=== PATIENT | female | born 1940 ===

== ENCOUNTER 2024-08-27 06:31 | Inpatient (IN) | payer OTHER ==
[~2024-08-27] VITALS: Ht 152.4 cm; Wt 68.0 kg
[~2024-08-27 06:31] MED LIST: COZAAR25 MG; DICLOFENAC POTA50 MG PO; NABUMETONE500 MG PO; NEURONTIN300 MG PO; NORFLEX100MG PO; ULTRACET PO
[2024-08-27] MEDS ORDERED: CLONAZEPAM0.5 MG PO (06:52)
[2024-08-27] MEDS ORDERED: COZAAR100 MG PO (06:52)
[2024-08-27] MEDS ORDERED: RISPERDAL0.5 MG PO (06:52)
--- NOTE | 2024-08-27 06:53 | NUR ---
SE RECIBE PACIENTE EN AMBULANCIA ALERTA Y CON RESPUESTA A ESTIMULOS. FAMILIAR REFIERE QUE DESDE HACE DOS GRANT PRESENTA DIFICULTAD RESPIRATORIA. SE OBSERVA PACIENTE CON NON REBREATHER 100% Y USO DE MUSCULOS ACCESORIOS. SE MONITOREAN VS, SE REALIZA EKG. SE UBICA EN AREA DE CRITICO Y SE CONECTA A MONITOR CARDIACO.
[2024-08-27] MEDS ORDERED: 0.9 % SODIUM CHLORIDE 1,000 ML IV STA (07:02)
[2024-08-27] MEDS ORDERED: FUROsemide 20 MG/2 ML VIAL ONE (07:06)
[2024-08-27] MEDS ORDERED: NITROGLYCERIN IN 5 % DEXTROSE 50 MG/250 ML KIT IV STA (07:06)
[2024-08-27] MEDS ORDERED: NITROGLYCERIN IN 5 % DEXTROSE 50 MG/250 ML BOTTLE IV ONE (07:07)
[2024-08-27] MEDS ORDERED: FUROsemide 20 MG/2 ML VIAL IV STA (07:07)
[2024-08-27] MEDS ORDERED: FLUMAZENIL 0.5 MG/5 ML ML IV STA (07:15)
[2024-08-27] MEDS ORDERED: FLUMAZENIL 0.5 MG/5 ML ML IV ONE (07:19)
--- NOTE | 2024-08-27 07:20 | NUR ---
SE CANALIZA PACIENTE EN BRAZO PAULETTE # 18 Y MANO IZQUIERDA # 20 SE COLOCA TRIDIL 50MG/250ML @ 2 ML/HR Y LASIX 20 MG POR ORDEN VERBAL DE DR. STAPLETON. SE GERALD MUESTRAS DE LAB[facility]ATORIOS Y SE ENVIAN. SE INSERTA BARRAZA # 16 BAJO MEDIDAS ESTERIL Y SE OBSERVA 300 ML DE EGRESO URINARIO NO HEMATURIA. PENDIENTE PLACA Y ABGS NOTIFICADOS A MS. BAEZ
[2024-08-27 07:48] LABS: HEMATOCRIT 27.1 % (36.0-45.00); MEAN CELL VOLUME 95.6 fL (80.00-100.00); RED BLOOD COUNT 2.84 M/uL (4.00-6.00); RED CELL DISTRIBUTION WIDTH 13.1 % (11.5-14.5)
[2024-08-27 07:50] LABS: MEAN CORPUSCULAR HEMOGLOBIN 33.4 pg (27.00-32.0); PLATELET COUNT 116 K/uL (150-450)
[2024-08-27 07:51] LABS: HEMOGLOBIN 9.5 g/dL (12.0-15.00)
[2024-08-27 08:05] LABS: PH,URINE 6.5 (5.0-8.0); URINE APPEARANCE Clear; URINE BILIRRUBIN Negative (NEGATIVE); URINE BLOOD Negative; URINE COLOR Yellow; URINE GLUCOSE Negative (NEGATIVE); URINE KETONE Trace (NEGATIVE); URINE LEUKOCYTE Small; URINE NITRATE Positive
[2024-08-27 08:06] LABS: URINE EPITHELIAL CELLS 17.7 uL (0.0-38.8); URINE WBC 232.8 uL (0.0-23.2)
[2024-08-27 08:09] LABS: PARTIAL THROMBOPLASTIN TIME 26.2 SECONDS (22.0-34.0)
[2024-08-27 08:14] LABS: ALBUMIN 3.1 gm/dL (3.4-5.0); BILIRUBIN TOTAL 1.04 mg/dL (0.3-1.2); CALCIUM 8.1 mg/dL (8.5-10.1); CREATININE SERUM 0.94 mg/dL (0.55-1.02); GFR 57.01; GLOBULINA 3.3 G/DL (2.4-3.5); POTASSIUM 3.28 mEq/L (3.5-5.1); TOTAL PROTEIN 6.4 gm/dL (6.4-8.2)
[2024-08-27 08:16] LABS: URINE CAST 0.58 uL (0.0-1.40)
[2024-08-27 08:19] LABS: URINE PROTEIN 300 (NEGATIVE)
[2024-08-27 08:21] LABS: D DIMER 3.66 MG/L
--- NOTE | 2024-08-27 08:45 | NUR ---
HIJA DE PACIENTE FIRMA DOCUMENTOS DE [id number]
[2024-08-27 08:52] LABS: INR 1.15; PROTHROMBIN TIME 12.4 SECONDS (9.0-11.5)
--- NOTE | 2024-08-27 15:00 | NUR ---
SE RECIBE PTE ALERTA Y ACTIVA EN UNIDAD DE CRITICO. PTE UBICADA EN DESCANZO EN CAMA BAJA CON BARANDAS ELEVADAS, CONECTADA A MONITOR CARDIACO Y OXIMETRIA DE PULSO CONTINUA. PTE RECIBIENDO ASISTENCIA RESPIRATORIA POR NON REBREATHER AL 100%. PTE CON CANALIZACION #20 Y #18 EN BRAZO DERECHO PATENTE CARLOS DE EDEMA Y ERITEMA RECIBIENDO TRIDIL A 3LT/HR. AL MOMENTO QUE SE RECIBE PTE LA MISMA NO REFIERE DOLOR. SE GERALD SV Y SE DOCUMENTAN
[2024-08-27] MEDS ORDERED: IPRATROPIUM BROMIDE 0.5 MG/2.5 ML AMPUL.NEB IH SCH (17:34)
[2024-08-27] MEDS ORDERED: FUROsemide 20 MG/2 ML VIAL IV SCH (17:40)
[2024-08-27] MEDS ORDERED: levoFLOXacin IN DEXTROSE 5 % 150 ML IV SCH (17:41)
[2024-08-27] MEDS ORDERED: ENOXAPARIN SODIUM 40 MG/0.4 ML SYRINGE SUBCUTANEO SCH (17:44)
[2024-08-27] MEDS ORDERED: ACETAMINOPHEN 500 MG GEL..CAP PO PRN (17:45)
[2024-08-27] MEDS ORDERED: NITROGLYCERIN IN 5 % DEXTROSE 250 ML IV SCH ×2 (18:00→19:15)
[2024-08-27] MEDS ORDERED: DEXTROSE 50 % IN WATER 0.5 G/ML DISP.SYRIN IV PRN (18:00)
[2024-08-27] MEDS ORDERED: INSULIN LISPRO 1,000 UNIT/10 ML UNITS SUBCUTANEO PRN (18:00)
[2024-08-27] MEDS ORDERED: POTASSIUM CHLORIDE 20MEQ/100ML H2O PB IV ONE (18:00)
[2024-08-27] MEDS ORDERED: FUROsemide 40 MG/4 ML VIAL ONE (19:03)
[2024-08-27] MEDS ORDERED: levoFLOXacin IN DEXTROSE 5 % 5 MG/ML PIGGYBAG IV ONE (19:03)
[2024-08-27] MEDS ORDERED: ENOXAPARIN SODIUM 40 MG/0.4 ML SYRINGE SUBCUTANEO ONE (19:03)
[2024-08-27 19:21] LABS: MAGNESIUM 1.5 mg/dL (1.8-2.4)
[2024-08-27 19:22] LABS: C-REACTIVE PROTEIN 3.87 MG/DL (0.00-0.29)
[2024-08-27 22:30] VITALS: BP 182/45; O2SAT 100
[2024-08-27] MEDS ORDERED: AMIODARONE IN DEXTROSE,ISO-OSM 360 MG/200 ML IV.SOLN IV ONE (23:29)
[2024-08-27] MEDS ORDERED: AMIODARONE HCL 50 MG/ML AMPUL IV ONE ×2 (23:29→23:45)
[2024-08-27 23:33] VITALS: BP 182/45; O2SAT 98
[2024-08-27] MEDS ORDERED: AMIODARONE IN DEXTROSE,ISO-OSM 360 MG/200 ML IV.SOLN IV SCH (23:45)
[2024-08-28] VITALS (24 sets, daily range): BP systolic 124–194; BP diastolic 47–98; O2SAT 17–100
[2024-08-28 07:32] LABS: PHOSPHOROUS 3.4 mg/dL (2.5-4.9)
[2024-08-28 07:54] LABS: MAGNESIUM 1.3 mg/dL (1.8-2.4)
[2024-08-28] MEDS ORDERED: MAGNESIUM SULFATE IN WATER 2 GM/50 ML PIGGYBAG IV NR ×2 (08:00→20:30)
[2024-08-28] MEDS ORDERED: ENALAPRILAT DIHYDRATE 1.25 MG/ML VIAL IV PRN (08:00)
[2024-08-28] MEDS ORDERED: LOSARTAN POTASSIUM 50 MG TABLET PO SCH (09:00)
[2024-08-28] MEDS ORDERED: IRON FUM,PS/FOLIC/BCOMP,C NO.9 1 CAP CAPSULE PO SCH (09:00)
[2024-08-28] MEDS ORDERED: hydrALAZINE HCL 25 MG TABLET PO SCH (09:00)
[2024-08-28] MEDS ORDERED: PANTOPRAZOLE SODIUM 40 MG/VIAL VIAL IV SCH (09:00)
[2024-08-28] MEDS ORDERED: MEROPENEM 500 MG/VIAL VIAL IV SCH (09:00)
[2024-08-28] MEDS ORDERED: DOXYCYCLINE HYCLATE 100 MG CAPSULE PO SCH (17:00)
[2024-08-28 19:05] LABS: ALBUMIN 3.4 gm/dL (3.4-5.0); BILIRUBIN TOTAL 1.16 mg/dL (0.3-1.2); CALCIUM 8.3 mg/dL (8.5-10.1); CREATININE SERUM 0.94 mg/dL (0.55-1.02); GFR 57.01; GLOBULINA 3.3 G/DL (2.4-3.5); TOTAL PROTEIN 6.7 gm/dL (6.4-8.2)
[2024-08-28 19:10] LABS: MAGNESIUM 1.4 mg/dL (1.8-2.4)
[2024-08-28 19:14] LABS: POTASSIUM 2.95 mEq/L (3.5-5.1)
[2024-08-28] MEDS ORDERED: POTASSIUM CHLORIDE IN WATER 100 ML IV NR (20:00)
[2024-08-28] MEDS ORDERED: HEPARIN SODIUM,PORCINE 5,000 UNITS/ML VIAL ONE (20:20)
[2024-08-28 22:17] LABS: TP PLEURAL FLUID 2.8 g/dl
[2024-08-28 22:31] LABS: MONONUCLEAR 100 %; PLEURAL FLUID APPEARANCE CRYSTAL CLEAR; PLEURAL FLUID COLOR YELLOW
[2024-08-29] VITALS (13 sets, daily range): BP systolic 134–180; BP diastolic 46–98; O2SAT 95–100
[2024-08-29] MEDS ORDERED: hydrALAZINE HCL 25 MG TABLET PO SCH (01:00)
[2024-08-29] MEDS ORDERED: hydrALAZINE HCL 50 MG TABLET PO SCH (09:00)
[2024-08-30 04:00] VITALS: BP 185/46; O2SAT 100
[2024-08-30] MEDS ORDERED: hydrALAZINE HCL 50 MG TABLET PO SCH (06:00)
[2024-08-30 07:27] VITALS: BP 165/63; O2SAT 100
[2024-08-30 15:30] VITALS: BP 190/137; O2SAT 100
[2024-08-30 16:00] VITALS: BP 196/62; O2SAT 100
[2024-08-30] MEDS ORDERED: AMLODIPINE BESYLATE 5 MG TABLET PO SCH (19:55)
[2024-08-30 20:39] VITALS: BP 174/66; O2SAT 100
[2024-08-30 22:25] VITALS: O2SAT 99
[2024-08-31] VITALS (8 sets, daily range): BP systolic 150–178; BP diastolic 55–66; O2SAT 90–100
[2024-09-01] VITALS (9 sets, daily range): BP systolic 157–188; BP diastolic 55–71; O2SAT 95–100
[2024-09-01] MEDS ORDERED: AMLODIPINE BESYLATE 10 MG TABLET PO SCH (17:00)
[2024-09-01 19:50] LABS: ALBUMIN 3.4 gm/dL (3.4-5.0); BILIRUBIN TOTAL 0.73 mg/dL (0.3-1.2); CALCIUM 8.9 mg/dL (8.5-10.1); CREATININE SERUM 1.51 mg/dL (0.55-1.02); GFR 32.99; GLOBULINA 3.4 G/DL (2.4-3.5); POTASSIUM 3.16 mEq/L (3.5-5.1); TOTAL PROTEIN 6.8 gm/dL (6.4-8.2)
[2024-09-02] VITALS (8 sets, daily range): BP systolic 131–160; BP diastolic 50–88; O2SAT 87–100
[2024-09-02] MEDS ORDERED: POTASSIUM CHLORIDE 20MEQ/100ML H2O PB IV STA (07:54)
[2024-09-02] MEDS ORDERED: FUROsemide 20 MG/2 ML VIAL IV SCH (09:00)
[2024-09-03] VITALS (7 sets, daily range): BP systolic 160–162; BP diastolic 56–76; O2SAT 98–100
[2024-09-03 07:52] LABS: HEMATOCRIT 32.7 % (36.0-45.00); HEMOGLOBIN 11.3 g/dL (12.0-15.00); MEAN CELL VOLUME 93.7 fL (80.00-100.00); MEAN CORPUSCULAR HEMOGLOBIN 32.3 pg (27.00-32.0); MEAN CORPUSCULAR HGB CONC 34.4 g/dl (32.0-36.0); PLATELET COUNT 231 K/uL (150-450); RED BLOOD COUNT 3.49 M/uL (4.00-6.00); RED CELL DISTRIBUTION WIDTH 13.1 % (11.5-14.5)
[2024-09-03] MEDS ORDERED: MEROPENEM 500 MG/VIAL VIAL IV SCH (09:00)
[2024-09-03] MEDS ORDERED: FAMOtidine 10 MG/ML (4ML VIAL) IV STA (14:13)
[2024-09-03 14:41] LABS: ALBUMIN 3.7 gm/dL (3.4-5.0); BILIRUBIN TOTAL 0.6 mg/dL (0.3-1.2); CREATININE SERUM 0.8 mg/dL (0.55-1.02); GFR 68.67; GLOBULINA 3.7 G/DL (2.4-3.5); POTASSIUM 3.95 mEq/L (3.5-5.1); TOTAL PROTEIN 7.4 gm/dL (6.4-8.2)
[2024-09-03 18:10] LABS: ABG PH 7.489 (7.35-7.45); ABG PO2 72.3 mmHg (80-100); ABG pCO2 39.3 mmHg (35-45); BASE EXCESS 5.5 mmol/l; BICARBONATE 29.2 mmol/l (23-25); SaO2 95.9 %; Tco2 30.4 mmol/l
[2024-09-03 18:14] LABS: o2 21 %
[2024-09-03 18:15] LABS: allen test SATISFACTORY; puncture site RADIAL LEFT
[2024-09-04 00:40] VITALS: O2SAT 100
[2024-09-04 02:38] VITALS: BP 143/55
[2024-09-04 05:34] VITALS: O2SAT 99
[2024-09-04 09:34] VITALS: BP 147/60
== END 2024-09-04 11:20 | disposition home or self-care (01) | DRG 193 ==
LOC: ER 06:31 → ICU-2 18:18 → ICU 18:18 → MEDJ 08-30 20:14
PROVIDERS: General Practice; Internal Medicine; Internal Medicine Infectious Disease; Radiology Vascular & Interventional Radiology; ADMIT Internal Medicine; ATTEND Internal Medicine
PROC: BB24YZZ Computerized Tomography (CT Scan) of Bilateral Lungs using Other Contrast (ICD-10-PCS; principal; 2024-08-27)
PROC: B246ZZZ Ultrasonography of Right and Left Heart (ICD-10-PCS; 2024-08-27)
PROC: 4A12X4Z Monitoring of Cardiac Electrical Activity, External Approach (ICD-10-PCS; 2024-08-27)
PROC: 0W993ZZ Drainage of Right Pleural Cavity, Percutaneous Approach (ICD-10-PCS; 2024-08-28)
PROC: 02HV33Z Insertion of Infusion Device into Superior Vena Cava, Percutaneous Approach (ICD-10-PCS; 2024-08-28)
PROC: 3E0F7GC Introduction of Other Therapeutic Substance into Respiratory Tract, Via Natural or Artificial Opening (ICD-10-PCS; 2024-08-28)
DX: J18.9 Pneumonia, unspecified organism (principal); I21.4 Non-ST elevation (NSTEMI) myocardial infarction; N39.0 Urinary tract infection, site not specified; J90 Pleural effusion, not elsewhere classified; D61.818 Other pancytopenia; J98.11 Atelectasis; I11.0 Hypertensive heart disease with heart failure; I50.9 Heart failure, unspecified; I44.1 Atrioventricular block, second degree; E87.6 Hypokalemia; R73.03 Prediabetes; R73.9 Hyperglycemia, unspecified; G30.8 Other Alzheimer's disease; F02.80 Dementia in other diseases classified elsewhere, unspecified severity, without behavioral disturbance, psychotic disturbance, mood disturbance, and anxiety; Z66 Do not resuscitate